=== PATIENT | male | born 2000 | race Caucasian/White ===

== ENCOUNTER 2019-03-31 18:52 | Inpatient (IN) ==
[2019-03-31] MEDS ORDERED: SODIUM CHLORIDE 0.9% 1000ML 1,000 ML IV SCH (19:15)
[2019-03-31 19:26] LABS: Basophils # (auto) 0.02 K/uL (0-0.2); Basophils % (auto) 0.2 %; Eosinophils # (auto) 0.02 K/uL (0-0.5); Eosinophils % (auto) 0.2 %; Hematocrit (blood only) 44.6 % (42-52); Hemoglobin 15.4 g/dL (14.0-18.0); Immature Granulocytes # (auto) 0.02 K/uL (0.00-0.02); Immature Granulocytes % (auto) 0.2 %; Lymphocytes # (auto) 2.11 K/uL (1.2-3.4); Lymphocytes % (auto) 20.3 %; Mean Corpuscular Hemoglobin 29.6 pg (25-34); Mean Corpuscular Hgb Conc 34.5 g/dL (32-36); Mean Corpuscular Volume 85.8 fL (80-100); Mean Platelet Volume 10.1 fL (7.4-10.4); Monocytes # (auto) 0.67 K/uL (0.11-0.59); Monocytes % (auto) 6.5 %; Neutrophils # (auto) 7.53 K/uL (1.4-6.5); Neutrophils % (auto) 72.6 %; Platelet Count 274 K/uL (130-400); RDW Coefficient of Variation 12.1 % (11.5-14.5); RDW Standard Deviation 38.2 fL (36.4-46.3); White Blood Count 10.37 K/uL (4.8-10.8)
[2019-03-31 19:44] LABS: Albumin Level 4.5 gm/dl (3.4-5.0); BUN Creatinine Ratio 9.7 (10-20); Calcium 9.2 mg/dl (8.5-10.1); Creatinine Clr Calc Pharmacy 155.6 ml/min; Est GFR (African American) 136.5; Est GFR (Non-African American) 117.8; Potassium 3.5 mmol/L (3.5-5.1)
[2019-03-31 19:47] LABS: Albumin Globulin Ratio 1.2 (0.9-2); Bilirubin,Total 0.7 mg/dl (0.2-1); Globulin 3.9 gm/dl (2.5-4.0); Total Protein 8.4 gm/dl (6.4-8.2)
[2019-03-31] MEDS ORDERED: LORazepam 0.5 MG/1 ML VIAL IV STA (20:24)
--- NOTE | 2019-03-31 20:39 | History & Physical Report ---
Date of Service March 31, 2019 Assessment & Plan (1) Acute appendicitis with localized peritonitis: 18-year-old male with CT confirmed acute appendicitis. We discussed his options to include antibiotics versus surgery, and the patient elects for surgery. Plan for laparoscopic appendectomy The risk of the procedure were discussed to include but not limited to bleeding, infection, normal appendix, damage to surrounding structures, need for future or more extensive surgery, conversion to open, and the risk of anesthesia Preop antibiotic 0.5 g Ativan IV x1 for anxiety (2) Fractured rib: (3) Concussion: History of Present Illness Primary Care Provider: [facility] 18-year-old male presented to the emergency department with a CT scan at [facility] that showed appendicitis. He started having some periumbilical pain on Thursday. This continued to progress. He does notice a little bit of pain in his right lower quadrant but most of his pain is periumbil ical. He has never had pain like this before. He had a recent fall and resulted in rib fractures and a mild TBI. He endorses anorexia, no change in bowel movements. He went to his PCP this morning at [facility], then went to [facility] and had a CT scan performed which showed an early acute appendicitis with no perforation and no other abnormalities. He was then referred to the emergency department for further management. No personal or family history of Crohn's or UC. Allergies Allergy/AdvReac Type Severity Reaction Status Date / Time No Known Allergies Allergy Verified 03/31/19 19:19 Home Medications Home Medications Medication Instructions Recorded Confirmed Type fish,bora,flax oils-om3,6,9no1 1 cap PO DAILY 03/31/19 03/31/19 History [[place] 3-6-9] ibuprofen [Motrin IB] 800 mg PO Q8H PRN 03/31/19 03/31/19 History multivitamin 1 tab PO DAILY 03/31/19 03/31/19 History Past Med/Surg History Medical History Fractured rib Concussion [place] teeth removed Family History Other No significant family history Social History Preferred Language: Citizen Of [place] Feels Safe at Home: Yes Smoking Status: Never smoker Review of Systems Review of Systems: All systems reviewed & are unremarkable except as noted in HPI & below Physical Exam Constitutional: WD/WN, vitals as above Eyes: PERRL, conjunctivae normal, anicteric sclerae ENMT: external ear and nose normal, oropharynx normal Neck: trachea midline, no thyromegaly Respiratory: normal respiratory effort, lungs clear to auscultation Cardiovascular: RRR, no murmur, no edema Gastrointestinal (Abdomen): Percussion/Palpation: + abdomen tender (Tenderness to palpation with guarding at the umbilicus and right lower quadrant per), + guarding and abdomen soft; abdomen not rigid, no hepatosplenomegaly and no hernia Musculoskeletal: no cyanosis or clubbing, extremities motor strength 5/5 Skin: no rashes, warm and dry Neurologic: PERRL, EOMI, accommodation nl, no face palsy, no dysarthria Psychiatric: A+Ox3, euthymic affect Lymphatic: no cervical or axillary lymphadenopathy Results & Data Vital Signs (Past 12 Hours) Vital Signs Temp Pulse Pulse Resp BP BP Pulse Ox 03/31/19 19:26 96 H 18 161/78 H 99 03/31/19 18:56 36.7 C 119 H 20 149/91 H 95 Laboratory Results Laboratory Results - last 24 hr 03/31/19 03/31/19 19:10 19:10 WBC 10.37 RBC 5.20 Hgb 15.4 Hct 44.6 MCV 85.8 MCH 29.6 MCHC 34.5 RDW Std Deviation 38.2 RDW Coeff of Guzman 12.1 Plt Count 274 MPV 10.1 Immature Gran % (Auto) 0.2 Neut % (Auto) 72.6 Lymph % (Auto) 20.3 Patrick % (Auto) 6.5 Eos % (Auto) 0.2 Baso % (Auto) 0.2 Immature Gran # (Auto) 0.02 Neut # (Auto) 7.53 H Lymph # (Auto) 2.11 Patrick # (Auto) 0.67 H Eos # (Auto) 0.02 Baso # (Auto) 0.02 Sodium 138 Potassium 3.5 Chloride 104 Carbon Dioxide 27 Anion Gap 7.0 BUN 9 Creatinine 0.93 Est Cr Clr Drug Dosing 155.6 Est GFR ( Amer) 136.5 Est GFR (Non-Af Amer) 117.8 BUN/Creatinine Ratio 9.7 L Glucose 99 Calcium 9.2 Total Bilirubin 0.7 AST 19 ALT 44 Alkaline Phosphatase 124 H Total Protein 8.4 H Albumin 4.5 Globulin 3.9 Albumin/Globulin Ratio 1.2 Lipase [address] scan report from [place] was reviewed and showed an early acute appendicitis with no evidence of perforation and no other abnormalities. I was unable to review the images myself. PG Care Time/CCT Total # of Minutes Spent Total Time Spent with Patient: Total time spent is greater than 50% in coordination of care (as documented) at patient's floor/unit and/or counseling patient:
[2019-03-31] MEDS ORDERED: SUCCINYLCHOLINE 100MG/5ML SYR ONE (20:40)
[2019-03-31] MEDS ORDERED: PROPOFOL IV EMULSION 10 MG/ML 20 ML VIAL IV ONE (20:40)
[2019-03-31] MEDS ORDERED: fentaNYL citrate 100 MCG/2 ML VIAL ONE ×2 (20:41→23:55)
[2019-03-31] MEDS ORDERED: MIDAZOLAM HCL 1 MG/ML 2ML VIAL ONE (20:41)
[2019-03-31] MEDS ORDERED: ROCURONIUM BROMIDE 10 MG/ML 5 ML VIAL ONE (20:47)
[2019-03-31] MEDS ORDERED: cefOXitin 2,000 MG in DEXTROSE 5% 50 ML IV ONE (20:55)
[2019-03-31] MEDS ORDERED: cefOXitin 2,000 MG/60 ML BAG IV STA (22:21)
--- NOTE | 2019-03-31 22:21 | Emergency Department Note ---
Entered by Olga Ruth acting as a scribe for John Dempsey DO History of Present Illness General Chief complaint: Abdominal Pain Stated complaint: PAIN IN [place] ARE[place] Source: patient History of Present Illness Onset (ago): day(s) 4 Location: abdomen (periumbilical) Pain Consistency: + other (persistent) Maximum Pain Intensity: 8 Current Pain Intensity: 8 Exacerbated By: + eating Associated symptoms: + denies other symptoms (vomiting) and + other (nausea, loss of appetite, inflammation of tip of appendix as per CT) The patient is a 18 year old male with a history of a concussion and rib fracture that is presenting to the Emergency Room with complaints of persistent pain in the periumbilical region that started 4 days ago. The patient reports that he had the pain evaluated by [facility] and then had a CT scan completed at [facility]. He states that he was found to have inflammation at the tip of his appendix. He notes some nausea but denies vomiting. He states that he has a slight cough but denies any rhinorrhea. He notes that the pain worsens with eating or drinking. He denies any dysuria. He reports that he last ate 24 hours ago and drank around 0800 this morning. He rates the pain as 8/10 at its worse. He notes that he has a concussion and fractured ribs. Home Medications Home Medications Medication Instructions Recorded Confirmed Type fish,bora,flax oils-om3,6,9no1 1 cap PO DAILY 03/31/19 03/31/19 History [[place] 3-6-9] ibuprofen [Motrin IB] 800 mg PO Q8H PRN 03/31/19 03/31/19 History multivitamin 1 tab PO DAILY 03/31/19 03/31/19 History Allergies Allergy/AdvReac Type Severity Reaction Status Date / Time No Known Allergies Allergy Verified 03/31/19 19:19 Past Med/Surg History Medical History Fractured rib Concussion [place] teeth removed Family History Other No significant family history Social History Preferred Language: K[place] Feels Safe at Home: Yes Smoking Status: Never smoker Review of Systems See HPI for pertinent positives & negatives. and A total of 10 systems reviewed and were otherwise negative Physical Exam Vital Signs Vital Signs - 24 hr 03/31/19 18:56 03/31/19 19:02 03/31/19 19:26 Temperature 36.7 C Temperature Source Oral Sepsis Recent Fever Within 48 Hours No Sepsis New/Unexplained Change in Mental Status No Sepsis Action Taken by Nursing No Action Required Pulse Rate 119 H Pulse Rate [Right Finger] 96 H Respiratory Rate 20 18 Blood Pressure 149/91 H Blood Pressure [Right Arm] 161/78 H Blood Pressure Mean 110 Blood Pressure Mean [Right Arm] 105 Blood Pressure Position Sitting Pulse Oximetry 95 99 Oxygen Delivery Method Room Air Room Air 03/31/19 21:00 Temperature Temperature Source Sepsis Recent Fever Within 48 Hours Sepsis New/Unexplained Change in Mental Status Sepsis Action Taken by Nursing Pulse Rate Pulse Rate [Right Finger] 83 Respiratory Rate 20 Blood Pressure Blood Pressure [Right Arm] 118/67 Blood Pressure Mean Blood Pressure Mean [Right Arm] 84 Blood Pressure Position Pulse Oximetry 97 Oxygen Delivery Method Room Air GENERAL: Standing up in room, alert, well nourished, no distress, non-toxic EYE EXAM: normal conjunctiva OROPHARYNX: no exudate, no erythema, lips, buccal mucosa, and tongue normal and mucous membranes are moist NECK: supple, no nuchal rigidity, no adenopathy, non-tender LUNGS: Clear to auscultation. Normal chest wall mechanics HEART: no murmurs, S1 normal and S2 normal ABDOMEN: abdomen soft, normo-active bowel sounds, no masses, no rebound or guarding. Tenderness to palpation of periumbilical region and right quadrant BACK: Back is symmetrical on inspection and there is no deformity, no midline tenderness, no CVA tenderness. SKIN: no rashes and no bruising UPPER EXTREMITIES: upper extremities are grossly normal. LOWER EXTREMITIES: No pitting edema. NEURO EXAM: Normal sensorium, cranial nerves II-XII grossly intact, normal speech, no gross weakness of arms, no gross weakness of legs. Course ED COURSE: Vital signs were reviewed and showed hypertensive situationally and tachycardic. The patients medical record was reviewed The above diagnostic studies were performed and reviewed. ED treatments and interventions as stated above. 0: The patient was evaluated in room C02B. A complete history and physical examination was performed. 1935: I discussed the patients case with Dr. Solano, General Surgery, who will evaluate the patient for further management. 2015: Upon reevaluation, the patient is resting comfortably. I discussed my findings with the patient and he understands and agrees with the treatment plan. Based on the patients age, coexisting illnesses, exam and lab findings the decision to treat as an inpatient was made. The patient remained stable while under my care. The patient will be evaluated for further management. Administered Medications Discontinued Medications Sodium Chloride (Nss 1000ml) 1,000 mls @ 999 mls/hr IV .Q1H1M CHERYL Stop: 03/31/19 20:15 Last Infusion: 03/31/19 20:16 Dose: 0 mls/hr Documented by: [id number] Admin: 03/31/19 19:18 Dose: 999 mls/hr Documented by: [id number] Lorazepam (Ativan) 0.5 mg in 1 mls @ 1 mls/min IV NOW STA Stop: 03/31/19 20:25 Last Admin: 03/31/19 20:33 Dose: 1 mls/min Documented by: [id number] Medical Decision Making Differential Diagnosis Differential diagnoses includes but is not limited to gastritis, peptic ulcer disease, GERD, gallbladder disease, pancreatitis, small bowel obstruction, acute coronary syndrome, pericarditis, ischemic bowel, irritable bowel disease, irritable bowel syndrome, appendicitis, diverticulitis, malignancy, hernia, urinary tract infection, torsion, perforation, trauma, infectious. Medical Records Attestation: I reviewed the patient's medical records. Home Medications Current Medication List: was personally reviewed by me Laboratory Data Attestation: I reviewed the patient's lab results. Result diagrams: 03/31/19 19:10 03/31/19 19:10 Lab Results 03/31/19 03/31/19 Range/Units 19:10 19:10 WBC 10.37 (4.8-10.8) K/uL RBC 5.20 (4.7-6.1) M/uL Hgb 15.4 (14.0-18.0) g/dL Hct 44.6 (42-52) % MCV 85.8 (80-100) fL MCH 29.6 (25-34) pg MCHC 34.5 (32-36) g/dL RDW Std Deviation 38.2 (36.4-46.3) fL RDW Coeff of Guzman 12.1 (11.5-14.5) % Plt Count 274 (130-400) K/uL MPV 10.1 (7.4-10.4) fL Immature Gran % (Auto) 0.2 % Neut % (Auto) 72.6 % Lymph % (Auto) 20.3 % [place] % (Auto) 6.5 % Eos % (Auto) 0.2 % Baso % (Auto) 0.2 % Immature Gran # (Auto) 0.02 (0.00-0.02) K/uL Neut # (Auto) 7.53 H (1.4-6.5) K/uL Lymph # (Auto) 2.11 (1.2-3.4) K/uL [place] # (Auto) 0.67 H (0.11-0.59) K/uL Eos # (Auto) 0.02 (0-0.5) K/uL Baso # (Auto) 0.02 (0-0.2) K/uL Sodium 138 (136-145) mmol/L Potassium 3.5 (3.5-5.1) mmol/L Chloride 104 (98-107) mmol/L Carbon Dioxide 27 (21-32) mmol/L Anion Gap 7.0 (3-11) BUN 9 (7-18) mg/dl Creatinine 0.93 (0.6-1.4) mg/dl Est Cr Clr Drug Dosing 155.6 ml/min Est GFR ( Amer) 136.5 Est GFR (Non-Af Amer) 117.8 BUN/Creatinine Ratio 9.7 L (10-20) Glucose 99 (70-99) mg/dl Calcium 9.2 (8.5-10.1) mg/dl Total Bilirubin 0.7 (0.2-1) mg/dl AST 19 (15-37) U/L ALT 44 (12-78) U/L Alkaline Phosphatase 124 H (45-117) U/L Total Protein 8.4 H (6.4-8.2) gm/dl Albumin 4.5 (3.4-5.0) gm/dl Globulin 3.9 (2.5-4.0) gm/dl Albumin/Globulin Ratio 1.2 (0.9-2) Lipase 50 L (73-393) U/L Blood Pressure Blood Pressure Findings: Elevated blood pressure Blood Pressure Disposition: elevated BP felt to be situational MDM Narrative Patient is a 18-year-old male that presents the ER for right lower quadrant/periumbilical abdominal pain. This is been present for the past 48 hours. IVs were established blood work was obtained. Seen at [facility] and had a CT of the abdomen pelvis performed at [facility]. He was referred into the ER. CT abdomen pelvis showed acute appendicitis. Labs show no significant leukocytosis or anemia. BMP along with LFTs bilirubin and lipase was unremarkable. Patient was given IV fluids. I gave him a dose of cefoxitin and discussed with the general surgeon. Patient declined pain medications. Impression & Plan Acute appendicitis, Abdominal pain Discharge Plan Visit Data Chief Complaint: Abdominal Pain Stated Complaint: PAIN IN [facility] AREA ED Provider: John Dempsey Discharge Problem: Acute appendicitis, Abdominal pain Patient Disposition: Being Evaluated by Surgeon Forms Stand Alone Forms: My [facility] Prescriptions Prescriptions: No Action ibuprofen [Motrin IB] 200 mg Tablet 800 mg PO Q8H PRN (Reason: Fever Or Pain) RF: 0 multivitamin Tablet,Chewable 1 tab PO DAILY RF: 0 [place] 3-6-9 1,200 mg Capsule 1 cap PO DAILY RF: 0 Referrals Referrals: [facility] [Primary Care Provider] - Discharge Problem: Acute appendicitis Qualifiers: Acute appendicitis type: other Qualified Code(s): K35.890 - Other acute appendicitis without perforation or gangrene Abdominal pain Qualifiers: Abdominal location: unspecified location Qualified Code(s): R10.9 - Unspecified abdominal pain The scribe's documentation has been prepared under my direction and personally reviewed by me in its entirety. I confirm that the note above accurately reflects all work, treatment, procedures, and medical decision making performed by me.
[2019-03-31] MEDS ORDERED: ONDANSETRON INJ 2 MG/ML 2 ML VIAL ONE (23:15)
--- NOTE | 2019-03-31 23:41 | Anesthesiology Consultation ---
Date of Service March 31, 2019 Assessment & Plan ASA ASA2E Proposed Anesthesia Anesthesia Type: General Risk / Benefits Reviewed With: PT / POA / Parent / Guardian, Accepts Plan and Informed Consent Obtained History Surgery Operation Date: 03/31/19 19:45 Proposed Procedures p Laparoscopic Appendectomy - Sami Solano DO, FACS Height/Weight Height: 6 ft 4 in Weight: 101.8 kg Allergies Allergy/AdvReac Type Severity Reaction Status Date / Time No Known Allergies Allergy Verified 03/31/19 19:19 Medications Home Medications Medication Instructions Recorded Confirmed Last Taken fish,bora,flax oils-om3,6,9no1 1 cap PO DAILY 03/31/19 03/31/19 Unknown [[place] 3-6-9] ibuprofen [Motrin IB] 800 mg PO Q8H PRN 03/31/19 03/31/19 Unknown multivitamin 1 tab PO DAILY 03/31/19 03/31/19 Unknown NPO Date Last Intake of Fluids: 03/31/19 Time Last Intake of Fluids: 08:00 Date Last Intake of Solids: 03/31/19 Time Last Intake of Solids: 08:00 Past Medical History Medical History Fractured rib Concussion [place] teeth removed Exercise / Class Metabolic Activity II 4-5 Yardwork/Stairs/Walk up hill Past Family History Family History Other No significant family history Past Anesthesia History No Hx of Anesthesia Complications and No Family Hx of Anesthesia Complications History of PONV No Hx of PONV and No Hx of Motion Sickness Social History Smoking Status: Never smoker Review of Systems denies fever/cough/ colds/ chest pain/ SOB/ SANDRA denies OH/CVA/Seizure Physical Exam Vital Signs Last Vital Signs Temp 36.7 C 03/31/19 18:56 Pulse 76 03/31/19 23:09 Resp 18 03/31/19 23:09 BP 134/68 03/31/19 23:09 Pulse Ox 96 03/31/19 23:09 ENMT Mouth: no TMJ abnormality and no dentition abnormality Thyromental Distance: > or= 3.5 Finger Breadths Mallampati Class: II Neck neck extension not limited Respiratory normal respiratory effort; no respiratory distress Auscultation: lungs clear to auscultation bilaterally Cardiovascular Rate/Rhythm: regular rate and regular rhythm Neurologic moves all extremities Psychiatric Orientation: alert and oriented x 3 Testing Laboratory Results 03/31/19 19:10 03/31/19 19:10
[2019-03-31] MEDS ORDERED: BUPIVACAINE 0.5 % 5 MG/1 ML MPF 30ML VIAL ONE (23:51)
[2019-04-01] MEDS ORDERED: fentaNYL citrate 100 MCG/2 ML VIAL ONE (00:19)
--- NOTE | 2019-04-01 01:08 | Operative Report ---
PG Post Operative Report Pre & Post Diagnosis Operation Date: 03/31/19 19:45 Pre-Op Diagnosis: Acute Appendicitis Post-Op Diagnosis: Acute Appendicitis and Umbilical abscess I identified the patient and participated in the time-out.: Yes Procedure Operation Date: 03/31/19 19:45 Actual Procedures p Laparoscopic Appendectomy and Incision and Drainage of Umbilical Abscess(Not Applicable) - Sami Solano DO, LAQUITA Surgeon Sami Solano DO, LAQUITA Auto Transport Driver None Estimated Blood Loss 5 Findings Consistent with Post-Op Diagnosis Upon opening the umbilicus I felt that there could have been an incarcerated umbilical hernia. After lifting up the umbilicus off its stalk there was a amor of probably 5 cc of murky colored fluid consistent with an old hematoma or abscess. This was completely drained. There was a small pinhole defect at the umbilicus which was expanded to be used as entry into the abdomen. Mild early acute appendicitis, good hemostasis. Bowel run with no other evidence of a bnormality. Fascia closed with 0 Vicryl suture. Specimens Appendix Anesthesia Type General Complications none Disposition Accompanied Patient To Recovery: No Disposition: Recovery Room Indications 18-year-old male presented to the emergency department with a CT scan from an outside facility showing acute appendicitis. Plan for laparoscopic appendectomy. The risks of the procedure were discussed, all questions were answered, and the patient agreed to proceed with surgery as planned. Description of Procedure The patient was properly identified, consented, and taken to the operating room where he was placed in the supine position. General endotracheal anesthesia was induced. SCDs and a safety belt were placed. Preoperative antibiotics were administered. A Díaz catheter was not placed. The patient's abdomen was prepped and draped in the standard sterile fashion. Surgical timeout was performed and all parties were in agreement that this was the correct patient and procedure to be performed and we continued as planned. A curvilinear infraumbilical incision was made with electrocautery and deepened down to the fascia with blunt dissection. Upon exam there appeared that there was a firm area at the superior portion of the umbilical stalk. I was concerned that this was an incarcerated hernia, and the patient had pinpoint tenderness at this area during physical exam, therefore I elected to explore the area. The umbilical stalk was circumferentially dissected with a Jennifer and the umbilical stalk was lifted off of the fascia using electrocautery. While opening this area there was a amor of approximately 5 cc of murky colored fluid that may have been consistent with an abscess or an old hematoma. The area was explored and there was no cyst or other abnormality noted. There was a small pinhole umbilical fascial defect. This was expanded and used as the entry point for the Mcdonough trocar. Stay suture of 0 Vicryl was placed and a Mcdonough trocar was inserted. The abdomen was insufflated with carbon dioxide which the patient tolerated without incident. The laparoscope was inserted and no damage from initial trocar placement was noted, no gross abnormalities were noted within the 4 quadrants the abdomen. 5 mm ports were then placed in the left lower quadrant with care not to damage the epigastric vessels, and in the suprapubic midline with care not to damage the bladder. The patient was placed in Trendelenburg position and rotated towards the left. The small bowel was swept away from the right lower quadrant. The cecum was grasped with an atraumatic grasper exposing the appendix. The appendix was mildly inflamed and there was no evidence of perforation. There was no fluid in the pelvis. A window was created between the base of the appendix and the mesoappendix. A maya loaded endoscopic stapler was then used to divide the appendix at its base. A maya load was then used to divide the mesoappendix. Hemostasis was good. The appendix was placed in an Endo Catch bag and removed through the umbilical port site. The right lower quadrant and pelvis was irrigated and hemostasis was found to be good. 5 mm trochars were removed under direct visualization and the abdomen was allowed to collapse. The umbilical port site fascia was closed with 0 Vicryl suture. There was a small pinhole defect at the base of the umbilical stalk which was closed with 3-0 Vicryl suture. The umbilical wound was copiously irrigated, and umbilical stalk was tacked down to the fascia with 3-0 Vicryl suture. The umbilical incision was then reapproximated with interrupted 3-0 Vicryl deep dermal sutures. The skin of all ports was closed with 4-0 Monocryl subcuticular sutures. Dermabond was placed over the wounds. The patient was extubated in the operating room and taken to the PACU where he recovered without apparent incident. All sponge, instrument and needle counts were correct at the conclusion of the procedure. The patient tolerated the procedure well. I attest to the content of the Intraoperative Record and any orders documented therein. Any exceptions are noted below.
[2019-04-01] MEDS ORDERED: FLUMAZENIL 0.1 MG/1 ML 10 ML VIAL IV PRN (01:24)
[2019-04-01] MEDS ORDERED: HYDROmorphone INJ 1 MG/ML SYRINGE IV PRN (01:24)
[2019-04-01] MEDS ORDERED: PROMETHAZINE HCL 12.5 MG in SODIUM CHLORIDE 0.9% 50 ML IV PRN (01:24)
[2019-04-01] MEDS ORDERED: NALOXONE HCL 0.4 MG/1 ML VIAL/CARP IV PRN (01:24)
[2019-04-01] MEDS ORDERED: ePHEDrine sulfate 50 MG/ML AMP IV PRN (01:24)
[2019-04-01] MEDS ORDERED: ATROPINE SULFATE 0.1 MG/ML 10ML SYR IV PRN (01:24)
[2019-04-01] MEDS ORDERED: ONDANSETRON INJ 2 MG/ML 2 ML VIAL IV PRN ×2 (01:24→02:10)
--- NOTE | 2019-04-01 01:34 | Anesthesiology Progress Note ---
Date of Service April 01, 2019 Anesthesia Post Procedure Vital Signs Vital Signs: Temp Pulse Pulse Resp BP BP Pulse Ox 04/01/19 01:30 74 22 148/70 H 99 04/01/19 01:25 80 24 138/64 98 04/01/19 01:22 86 25 H 147/78 H 100 04/01/19 01:17 36.9 C 80 20 150/79 H 100 03/31/19 23:09 76 18 134/68 96 03/31/19 22:29 86 18 118/68 98 03/31/19 21:00 83 20 118/67 97 03/31/19 19:26 96 H 18 161/78 H 99 03/31/19 18:56 36.7 C 119 H 20 149/91 H 95 Pain Intensity Abdomen: Pain Intensity: 0 Transfer of Care Handoff Completed per policy Notes Mental Status: alert / awake / arousable Patient Amnestic to Procedure: Yes Nausea / Vomiting: adequately controlled Pain: adequately controlled Airway Patency, RR, SpO2: stable & adequate BP & HR: stable & adequate Hydration State: stable & adequate Anesthetic Complications: no major complications apparent
[2019-04-01] MEDS ORDERED: OXYCODONE/ACETAMINOPHEN 5mg/325mg TAB PO PRN (02:10)
[2019-04-01] MEDS ORDERED: DiphenhydrAMINE HCL 50 MG/ML VIAL IV PRN (02:10)
[2019-04-01] MEDS ORDERED: MoRPHine SULFATE 2 MG/ML CARP IV PRN (02:10)
[2019-04-01] MEDS ORDERED: MoRPHine SULFATE 4 MG/ML 1 ML CARP\\VIAL IV PRN (02:10)
[2019-04-01] MEDS ORDERED: MoRPHine SULFATE 2 MG/ML CARP ONE (02:29)
[2019-04-01] MEDS: LACTATED RINGER'S 1,000 ML IV SCH ×3 (03:40→19:22)
[2019-04-01] MEDS: cefOXitin 2,000 MG in DEXTROSE 5% 50 ML IV SCH ×4 (03:40→22:18)
[2019-04-01] MEDS: KETOROLAC TROMETHAMINE 15 MG/ML VIAL IV SCH ×4 (03:40→22:16)
[2019-04-01] MEDS: OXYCODONE/ACETAMINOPHEN 5mg/325mg TAB PO PRN ×2 (05:45→14:08)
--- NOTE | 2019-04-01 08:02 | Anesthesiology Progress Note ---
Date of Service April 01, 2019 Anesthesia Post Procedure Vital Signs Vital Signs: Temp Pulse Pulse Pulse Resp BP BP 04/01/19 07:59 37.7 C H 108 H 04/01/19 07:10 38.2 C H 97 H 16 123/70 04/01/19 04:55 37.4 C 98 H 16 132/78 04/01/19 03:55 37.4 C 78 16 119/70 04/01/19 02:55 37.2 C 86 16 137/70 04/01/19 02:25 37.3 C 80 16 144/70 H 04/01/19 02:21 37.2 C 76 16 137/73 04/01/19 01:55 37.2 C 76 16 137/73 04/01/19 01:49 37 C 04/01/19 01:45 73 23 141/76 H 04/01/19 01:40 72 20 150/66 H 04/01/19 01:35 70 22 149/67 H 04/01/19 01:30 74 22 148/70 H 04/01/19 01:25 80 24 138/64 04/01/19 01:22 86 25 H 147/78 H 04/01/19 01:17 36.9 C 80 20 03/31/19 23:09 76 18 134/68 03/31/19 22:29 86 18 03/31/19 21:00 83 20 03/31/19 19:26 96 H 18 03/31/19 18:56 36.7 C 119 H 20 149/91 H BP Pulse Ox 04/01/19 07:59 04/01/19 07:10 91 04/01/19 04:55 97 04/01/19 03:55 92 04/01/19 02:55 93 04/01/19 02:25 93 04/01/19 02:21 92 04/01/19 01:55 92 04/01/19 01:49 04/01/19 01:45 93 04/01/19 01:40 94 04/01/19 01:35 98 04/01/19 01:30 99 04/01/19 01:25 98 04/01/19 01:22 100 04/01/19 01:17 150/79 H 100 03/31/19 23:09 96 03/31/19 22:29 118/68 98 03/31/19 21:00 118/67 97 03/31/19 19:26 161/78 H 99 03/31/19 18:56 95 Pain Intensity Abdomen: Pain Intensity: 10 Notes Mental Status: alert / awake / arousable and participated in evaluation Patient Amnestic to Procedure: Yes Nausea / Vomiting: adequately controlled Pain: adequately controlled Airway Patency, RR, SpO2: stable & adequate BP & HR: stable & adequate Hydration State: stable & adequate Anesthetic Complications: no major complications apparent and Pt Satisfied with anesthetic care
--- NOTE | 2019-04-01 08:56 | Surgery Progress Note ---
Date of Service April 01, 2019 Assessment & Plan (1) Acute appendicitis: increase diet, activity recheck later today Supervising Physician Co-Signing Physician Notes Patient seen and examined, agree with above. 18-year-old male status post laparoscopic appendectomy and incision and drainage of umbilical abscess early this morning. He is still sore in his bellybutton but feels better than he did prior to surgery. He has a little bit of nausea and tolerated clear liquids. We will advance his diet slowly as tolerated, plan for discharge this afternoon. Given the finding at his umbilicus we will prescribe him 7 days of Augmentin. Subjective pain control adequate, no nausea Physical Exam Gastrointestinal (Abdomen): Inspection/Auscultation: + abdominal surgical incision (clean, dry) Percussion/Palpation: abdomen soft Results & Data Vital Signs (Past 12 Hours) Vital Signs Temp Pulse Pulse Pulse Resp BP BP 04/01/19 07:59 37.7 C H 108 H 04/01/19 07:10 38.2 C H 97 H 16 123/70 04/01/19 04:55 37.4 C 98 H 16 132/78 04/01/19 03:55 37.4 C 78 16 119/70 04/01/19 02:55 37.2 C 86 16 137/70 04/01/19 02:25 37.3 C 80 16 144/70 H 04/01/19 02:21 37.2 C 76 16 137/73 04/01/19 01:55 37.2 C 76 16 137/73 04/01/19 01:49 37 C 04/01/19 01:45 73 23 141/76 H 04/01/19 01:40 72 20 150/66 H 04/01/19 01:35 70 22 149/67 H 04/01/19 01:30 74 22 148/70 H 04/01/19 01:25 80 24 138/64 04/01/19 01:22 86 25 H 147/78 H 04/01/19 01:17 36.9 C 80 20 03/31/19 23:09 76 18 134/68 03/31/19 22:29 86 18 03/31/19 21:00 83 20 BP Pulse Ox 04/01/19 07:59 04/01/19 07:10 91 04/01/19 04:55 97 04/01/19 03:55 92 04/01/19 02:55 93 04/01/19 02:25 93 04/01/19 02:21 92 04/01/19 01:55 92 04/01/19 01:49 04/01/19 01:45 93 04/01/19 01:40 94 04/01/19 01:35 98 04/01/19 01:30 99 04/01/19 01:25 98 04/01/19 01:22 100 04/01/19 01:17 150/79 H 100 03/31/19 23:09 96 03/31/19 22:29 118/68 98 03/31/19 21:00 118/67 97 PG Care Time/CCT Total # of Minutes Spent Total Time Spent with Patient: Total time spent is greater than 50% in coordination of care (as documented) at patient's floor/unit and/or counseling patient: (1) Acute appendicitis Acute appendicitis type: other Qualified Code(s): K35.890 - Other acute appendicitis without perforation or gangrene; K35.89 - Other acute appendicitis
[2019-04-01 10:30] LABS: Appearance Urine Clear (Clear); Bilirubin Urine Negative (Negative); Blood Urine Negative (Negative); Color Urine Yellow; Glucose Urine UA Negative (Negative); Ketones Urine 1+ (Negative); Leukocyte Esterase Urine Negative (Negative); Nitrite Urine Negative (Negative); Protein Urine Negative (Negative); Specific Gravity Urine 1.019 (1.000-1.030); Urobilinogen Urine Negative (Negative); pH Urine 6.5 (4.5-7.5)
[2019-04-02] MEDS: KETOROLAC TROMETHAMINE 15 MG/ML VIAL IV SCH ×4 (03:48→21:19)
[2019-04-02] MEDS: LACTATED RINGER'S 1,000 ML IV SCH ×3 (03:48→20:10)
[2019-04-02] MEDS: OXYCODONE/ACETAMINOPHEN 5mg/325mg TAB PO PRN ×2 (05:39→10:43)
--- NOTE | 2019-04-02 09:14 | Surgery Progress Note ---
Date of Service April 02, 2019 Assessment & Plan (1) Acute appendicitis: Postoperative day #1, status post laparoscopic appendectomy Has not ambulated well Pain control has limited his ambulation Tolerating diet Encouraged him to ambulate today Will evaluate later today but may need to stay 1 more night for pain control Subjective Postoperative day #1, status post laparoscopic appendectomy Having pain that is been limiting his activity Tolerated regular diet Denies nausea Has not ambulated well Physical Exam Gastrointestinal (Abdomen): Inspection/Auscultation: normal bowel sounds and + abdominal surgical incision (Incisions are clean, dry and intact); abdomen not distended Percussion/Palpation: + abdomen tender (Mostly incisional) and abdomen soft Results & Data Vital Signs (Past 12 Hours) Vital Signs Temp Pulse Resp BP BP Pulse Ox 04/02/19 07:14 36.8 C 68 16 124/78 90 04/01/19 23:35 37.4 C 85 16 115/63 95 (1) Acute appendicitis Acute appendicitis type: other Qualified Code(s): K35.890 - Other acute appendicitis without perforation or gangrene; K35.89 - Other acute appendicitis
[2019-04-03] MEDS: KETOROLAC TROMETHAMINE 15 MG/ML VIAL IV SCH ×3 (02:03→15:14)
[2019-04-03] MEDS: LACTATED RINGER'S 1,000 ML IV SCH ×2 (02:03→09:23)
--- NOTE | 2019-04-03 10:23 | Surgery Progress Note ---
Date of Service April 03, 2019 Assessment & Plan (1) Acute appendicitis: Postoperative day #3, status post laparoscopic appendectomy Pain still moderate but better controlled today, still requiring IV Toradol for pain Tolerating diet decrease iv fluids to 75 mls/hr Encouraged him to ambulate today and try oral pain medication instead of IV to assess his pain control Will likely stay tonight and hopeful discharge home tomorrow, Dr. Ochoa to return tomorrow Dr. Nick has seen and examined pt, agrees with above Supervising Physician Co-Signing Physician Notes I interviewed and examined this patient I agree with the above note Since this initial visit his mother is arrived and she would like to take him home. I agree with that. Augmentin and Percocet prescriptions have already been sent. He was given his discharge instructions and he can follow-up with Dr. Solano next week. Subjective feeling better pain still present but better controlled today more abdominal/surgical pain than his right rib pain per nursing staff, still taking IV Toradol, hasn't asked for oral pain meds no n/v, tolerating regular diet passing flatus no bowel movement Physical Exam Constitutional: WD/WN, vitals as above no acute distress Gastrointestinal (Abdomen): Inspection/Auscultation: abdomen not distended Percussion/Palpation: + abdomen tender and abdomen soft; no guarding and abdomen not rigid Skin: no rashes, warm and dry + incision (covered with dry dressings) Psychiatric: A+Ox3, euthymic affect Results & Data Vital Signs (Past 12 Hours) Vital Signs Temp Pulse Resp BP Pulse Ox 04/03/19 07:12 36.7 C 73 19 123/72 96 04/02/19 23:28 37.3 C 83 16 133/71 95 (1) Acute appendicitis Acute appendicitis type: other Qualified Code(s): K35.890 - Other acute appendicitis without perforation or gangrene; K35.89 - Other acute appendicitis
[2019-04-03] MEDS: OXYCODONE/ACETAMINOPHEN 5mg/325mg TAB PO PRN (15:14)
--- NOTE | 2019-04-04 11:29 | Discharge Summary ---
Date of Service April 04, 2019 Admission HPI Per Admitting Provider 18-year-old male presented to the emergency department with a CT scan at [facility] that showed appendicitis. He started having some periumbilical pain on Thursday. This continued to progress. He does notice a little bit of pain in his right lower quadrant but most of his pain is periumbilical. He has never had pain like this before. He had a recent fall and resulted in rib fractures and a mild TBI. He endorses anorexia, no change in bowel movements. He went to his PCP this morning at [facility], then went to [facility] and had a CT scan performed which showed an early acute appendicitis with no perforation and no other abnormalities. He was then referred to the emergency department for further management. No personal or family history of Crohn's or UC. Principal Diagnosis Acute appendicitis Discharge Exam Gastrointestinal (Abdomen) Inspection/Auscultation: + abdominal surgical incision (clean, dry) Percussion/Palpation: abdomen soft Discharge Data Allergies Allergy/AdvReac Type Severity Reaction Status Date / Time No Known Allergies Allergy Verified 03/31/19 19:19 Procedures Performed Operation Date: 03/31/19 19:45 Actual Procedures p Laparoscopic Appendectomy;(Not Applicable) - Sami Solano DO, FACS s Incision and Drainage of Umbilical Abscess(Not Applicable) - Sami Solano DO, FACS Hospital Course (1) Acute appendicitis: 18 y/o male with abdominal pain and outpatient CT with appendicitis was evaluated in the ED and taken to the OR for laparoscopic appendectomy overnight. In the morning he was slow to advance diet and activity. Pain control was also an issue given recent rib fracture. On POD 3 he was tolerating oral analgesics and was stable for discharge. Total Time Total Time Spent Total Time Spent (In Minutes): 10 Discharge Plan Discharge Items Patient Disposition: Home - Self-Care Reason For Visit: APPENDICITIS Discharge Diagnosis: acute appendicitis Activity: Per Instructions section Lifting: No more than 10 pounds Bathing Comment: you may shower Exercise/Sports: Wait until after follow-up appointment Driving/Machine Use: do not resume driving if taking narcotics for pain Non-emergency contact: Surgeon Call non-emergency contact if: you have any medication questions, your symptoms worsen, your pain is not controlled, your pain is worsening, your pain is unusual for you, your pain is concerning for you, you have a fever, your temperature is above 101.5, your wound has increased redness, your wound has increased drainage and your wound pain has increased Follow-up/Referrals: Sami Solano, LAQU[facility] [Family Provider] - (Please call the clinic to schedule follow up within 1-2 weeks. You may call the office sooner if you have any questions/concerns.) [facility] [Primary Care Provider] - Diet: Regular Addtl Attending Provider Instructions: Please complete your full course of antibiotic Pending Studies at Discharge: No Stand-Alone Forms: [facility] [employer], Opio[facility] Pain [facility], Work/School Release (Inpt), Smoking Cessation Medications and DC Order Prescriptions: New oxycodone-acetaminophen [Percocet] 5-325 mg tablet 1 - 2 tab PO .every 4-6 hours PRN (Reason: pain, for initial therapy. max 8 per day) Qty: 15 RF: 0 amoxicillin-pot clavulanate [Augmentin] 875-125 mg tablet 1 tab PO Q12H Qty: 14 RF: 0 Continued ibuprofen [Motrin IB] 200 mg Tablet 800 mg PO Q8H PRN (Reason: Fever Or Pain) RF: 0 multivitamin Tablet,Chewable 1 tab PO DAILY RF: 0 Mcgrann 3-6-9 1,200 mg Capsule 1 cap PO DAILY RF: 0 Discharge Orders: Discharge Order (Routine); Ordered 04/01/19 Ordered By: Giselle Reilly/Other Patient Handouts: Appendectomy Admission Data Admit Date/Time: 04/03/19 14:13 Attending Provider: Sami Solano Admit Provider: Sami Solano Primary Care Provider: [facility] Other Interventions: Discharge Summary Assessment (RN) Last Done: 04/03/19 16:53 DC Date/Time DO NOT enter until pt leaves facility: 04/03/19 17:45
== END 2019-04-03 17:45 | disposition home or self-care (01) | DRG 342 ==
LOC: ED 18:52 → 3W 23:09 → ASU 23:09